=== PATIENT | male | born 1965 | race Caucasian/White ===

== ENCOUNTER 2019-10-04 12:10 | Emergency (ER) | payer SELFPAY | END 2019-10-04 14:24 | disposition home or self-care (01) | LOC: ERS 12:10 | DX: R05 Cough (principal); F17.210 Nicotine dependence, cigarettes, uncomplicated | CPT/HCPCS: 99281 ==

== ENCOUNTER 2019-10-10 11:29 | Inpatient (IN) | payer SELFPAY ==
[2019-10-10] MEDS ORDERED: Diltiazem 125 MG/25 ML ONE ×2 (12:00→12:34)
[2019-10-10 12:10] LABS: #Eosinphils 0.1 thou/uL (0.0-0.7); #Neutrophils 7.5 thou/uL (1.40-6.50); %Basophils 0.4 % (0.0-1.0); %Eosinophils 0.7 % (0.0-10.0); %Lymphocytes 18.6 % (21.0-51.0); %Monocytes 9.4 % (0.0-10.0); %Neutrophils 70.9 % (42.0-75.0); Hemoglobin 13.5 g/dL (14.0-18.0); Mean Corpuscular HGB CONC 32.6 g/dL (32.0-36.0); Mean Corpuscular Hemoglobin 30.3 pg (27.0-31.0); Mean Corpuscular Volume 93.2 fL (78.0-98.0); Mean Platelet Volume 9.7 fL (7.4-10.4); Platelet Count 272 thou/uL (130-400); RBC Distribution Width 13.9 % (11.5-14.5); Red Blood Cell (RBC) Count 4.46 mill/uL (4.70-6.10); White Blood Cell (WBC) Count 10.6 thou/uL (4.8-10.8)
[2019-10-10] MEDS ORDERED: Diltiazem HCl 125 MG, Admixture Fee 1 EACH in Sodium Chloride 0.9% 100 ML IVPB SCH (12:15)
--- NOTE | 2019-10-10 12:22 | RAD ---
Chest one view HISTORY: Chest pain. Atrial flutter. FINDINGS: No comparison. Cardiac silhouette is magnified and enlarged. Pulmonary vasculature is engor ged with bilateral perihilar and bibasilar infiltrates. More prominent airspace opacification with subtle air bronchograms projects over the right posterior lung base. Mediastinum is midline. No evidence of pneumothorax. patient monitor leads overlie the chest. IMPRESSION: Cardiomegaly with pulmonary vascular congestion/borderline edema. Consider CHF. Probable superimposed right lung base infiltrate. Clinical correlation regarding other signs and symp toms of right lower lobe pneumonitis is required. Please consider radiographic follow-up to evaluate for resolution.
[2019-10-10 12:24] LABS: INR-International Normal Ratio 1.1
[2019-10-10 12:25] LABS: D-Dimer Test 2.44 *mcg/mL (0.27-0.43)
[2019-10-10 12:37] LABS: PTT 29.3 SEC (22.9-36.1)
[2019-10-10 12:38] LABS: ALT (SGPT) 39 U/L (8-55); AST (SGOT) 34 U/L (5-34); Albumin 4.3 g/dL (3.5-5.0); Alkaline Phosphatase 145 U/L (40-110); Anion Gap 15 mmol/L (10-20); BUN (Urea Nitrogen) 20 mg/dL (8.4-25.7); Bilirubin, Total 1.3 mg/dL (0.2-1.2); Calc. Creatinine Clearance 0 mL/min (70-130); Calcium 9.4 mg/dL (7.8-10.44); Carbon Dioxide 25 mmol/L (22-29); Chloride 100 mmol/L (98-107); Estimated GFR-MDRD 64; Globulin 3.1 g/dL (2.4-3.5); Glucose 127 mg/dL (70-105); Lipase 20 U/L (8-78); Potassium 4.5 mmol/L (3.5-5.1); Protein, Total 7.4 g/dL (6.0-8.3); Sodium 135 mmol/L (136-145)
[2019-10-10] MEDS ORDERED: Aspirin Chewable 81 MG TAB ONE (12:57)
[2019-10-10 13:01] LABS: CKMB 4.8 ng/mL (0-6.6)
[2019-10-10] MEDS ORDERED: Azithromycin 500 MG VIAL ONE (13:15)
[2019-10-10] MEDS ORDERED: Labetalol HCl 100 MG/20 ML VIAL ONE (13:15)
[2019-10-10] MEDS ORDERED: Enoxaparin Sodium 80 MG/0.8 ML SYRINGE ONE (13:15)
[2019-10-10] MEDS ORDERED: cefTRIAXone\\ROCEPHIN 2 GM VIAL ONE (13:15)
[2019-10-10] MEDS ORDERED: Enoxaparin Sodium 30 MG/0.3 ML SYRINGE ONE (13:15)
[2019-10-10] MEDS ORDERED: Metoprolol Tartrate 5 MG/5 ML VIAL ONE (13:22)
[2019-10-10] MEDS ORDERED: Iopamidol-370 76% 500 ML 1 ML ONE (13:23)
[2019-10-10] MEDS ORDERED: Amiodarone 150 MG, Admixture Fee 1 EACH in Dextrose 5% in Water 100 ML IVPB SCH (14:45)
[2019-10-10] MEDS ORDERED: Amiodarone 450 MG, Admixture Fee 1 EACH in Dextrose 5% in Water 250 ML IVPB SCH (14:45)
--- NOTE | 2019-10-10 15:09 | CT ---
CT PULMONARY ANGIOGRAM WITH IV CONTRAST AND 3-D POSTPROCESSING: HISTORY:Dyspnea FINDINGS: There is good contrast opacification of the pulmonary arterial vasculature without filling defects to suggest pulmonary embolism. The thoracic aorta is not opacified and is without aneurysm . Subcarinal lymph nodes are enlarged sania suring 2 cm. Other mediastinal lymph nodes measure up to 1 cm. No pericardial effusion is seen. There is a tiny left and a small right pleural effusion with adjacen t infiltrates/atelectatic changes. No pneumothoraces are seen. There is a 5 mm nodule in the right upper lobe posteriorly. There are degenerative changes in the spine. IMPRESSION: 1. No CT evidence of pulmonary embolism. 2. Indeterminate right upper lobe 5 mm lung nodule. 3. Bilateral pleural effusions. 4. Mediastinal lymphadenopathy.
[2019-10-10] MEDS ORDERED: Furosemide 40 MG/4 ML VIAL ONE (15:49)
[2019-10-10 16:53] LABS: Critical Call Chem Troponin I RESULT DECREASING; Troponin I 4.884 ng/mL (< 0.028)
--- NOTE | 2019-10-10 18:22 | HP ---
CHIEF COMPLAINT: Cough and atrial flutter. HISTORY OF PRESENT ILLNESS: The patient is a 54-year-old male, who had a 10-day history of a cough, somewhat productive with yellowish, brownish sputum on and off, who went to the primary care physician at [facility] with complaints of a cough, and he had EKG done, which showed he was in a fast heart rate, and he was sent to the emergency room for further evaluation. He was found to be in atrial flutter in the emergency room and was given Cardizem and labetalol, and despite of all those treatments, he did not respond to this management yet. He does not have much more complaints to offer. He denies any fever or chills. No chest pain. No shortness of breath. He does not have any well-established primary care physician. He never went to any heart doctor for any cardiac problems. He denied any peripheral edema. PAST MEDICAL HISTORY: Negative for any problems. PAST SURGICAL HISTORY: There is no past surgical history. MEDICATIONS: None. ALLERGIES: NONE. SOCIAL HISTORY: He smokes 7 to 8 cigarettes per day. He used to smoke 10 to 12 for the last 44 years. FAMILY HISTORY: Mother and father with diabetes, and father is in his 50s, but mother is still alive. REVIEW OF SYSTEMS: All 14 systems were reviewed, and only symptoms which are mentioned in HPI are positive and otherwise they are negative. PHYSICAL EXAMINATION: VITAL SIGNS: Blood pressure is 128/105, pulse is 146, respiratory rate is 22. He is afebrile. HEENT: His head is atraumatic and normocephalic. Eyes are PERRLA. Sclerae are nonicteric. Conjunctivae pinkish. Oral mucosa, his dental hygiene is quite poor. NECK: Supple. LUNGS: Clear. HEART: S1, S2. Tachycardic, regular. No S3. No S4. ABDOMEN: Soft, nontender, obese. EXTREMITIES: No clubbing, cyanosis, or edema. NEUROLOGICAL: He is alert and oriented x4. There are no any motor or sensory deficits present. Cranial nerves are intact. LABORATORY DATA: Labs showed white count of 10.6, hemoglobin 13.5, hematocrit 41.6, and platelet count is 272,000. INR is 1.1, APTT 29.3, PT 14.0. D-dimer is 2.44. Sodium 135, potassium 4.5, chloride 100, CO2 of 25, BUN 20, creatinine 1.18, and glucose 127. Lactic acid 2.0, total bilirubin 1.3, alkaline phosphatase 145. Normal LFTs, except for those which are abnormal. Troponin I 4.901. BNP 1093.1. The rest of chemistry within normal limits. Lipase 20. TSH third generation 1.5072. Electrocardiogram personally reviewed by me showed atrial flutter with ventricular rate of 150 beats per minute, some Q waves present, which is suggestive of previous infarctions. Chest x-ray personally reviewed by me showed cardiomegaly with pulmonary vascular congestion and borderline edema most likely it is CHF, possible infiltrate in the right lower lobe. IMPRESSION: 1. Atrial flutter with ventricular rate of 150 beats per minute, not responding to medical management. The patient received 45 mg total of Cardizem, and he had 2 doses of labetalol 5 mg each. 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 Rico for EP evaluation. He would like to start the patient on amiodarone and full anticoagulation with Lovenox subcutaneously every 12 hours. 2. Cough with right lower lobe infiltrate on chest x-ray to rule out pneumonia. The patient is started on Rocephin and Zithromax. 3. Elevated BNP with some evidence of congestive heart failure on the chest x-ray. 4. Elevated troponin I, 1st set, suggestive of acute myocardial injury. 5. Elevated D-dimers to rule out acute PE. PLAN: Admission to [facility]. Condition is guarded. IV Hep-Lock. Amiodarone 150 mg loading dose, then IV drip. Lovenox 1 mg/kg subcutaneously every 12 hours. Consult for Cardiology and EP, Dr. Rico. Continue Rocephin and azithromycin. DVT prophylaxis with SCDs. Full code. Surrogate decision maker, Gina Brady, personal friend of the patient. Primary care physician at [facility]. We will obtain echocardiogram, and we will continue with 2 sets of troponins to rule out acute MN. I will give him 1 dose of Lasix, and he will be on twice a day dosing IV push 40 mg of Lasix. Job ID: [id number]
[2019-10-10] MEDS ORDERED: Ondansetron PF 4 MG/2 ML Vial IVP PRN (18:37)
[2019-10-10 19:18] LABS: Troponin I 5.126 ng/mL (< 0.028)
--- NOTE | 2019-10-10 19:33 | CON ---
DATE OF CONSULTATION: 10/10/2019 REASON FOR CONSULTATION: [id number] NM and atrial flutter. HISTORY OF PRESENT ILLNESS: Mr. Jc is a pleasant 54-year-old white gentleman, who comes to the hospital for cough. He has been having a cough for the last 2 weeks. He came to the ER 2 weeks ago and he was given some cough syrup and sent home. He states that the cough has been getting worse. He was evaluated and found to have atrial flutter with rapid ventricular response, heart rate in the 150s and he was started on Cardizem drip and given some labetalol. His heart rate went down to the 120s; however, it is still in the 120s to 140s. EP was consulted for this. They recommended starting an amiodarone drip. Cardiology also been consulted because his troponins were positive. His initial troponin came back at 4.9. Talking to Mr. Jc, he denies any chest pain, tightness, or pressure. He is only short of breath and he has been doing with this cough. He is unable to lay flat as he gets really short of breath smothered and he starts coughing a lot more. He has been going on for the last 2 weeks, getting worse every day. He denies any cardiac workup in the past. PAST MEDICAL HISTORY: None. PAST SURGICAL HISTORY: None. OUTPATIENT MEDICATIONS: None. ALLERGIES: NO KNOWN DRUG ALLERGIES. SOCIAL HISTORY: Smokes around half a pack a day for about 44 years. Social alcohol use. No drug use. FAMILY HISTORY: No early coronary artery disease as far as he knows. REVIEW OF SYSTEMS: A 12-point review of systems was done and was all negative unless stated in the history of present illness. PHYSICAL EXAMINATION: VITAL SIGNS: Temperature 98.2, pulse 138, respiratory rate 22, saturating 98% on 2 L nasal cannula, and blood pressure 122/86. GENERAL: Awake, alert, and oriented x3, in no distress. HEENT: Normocephalic and atraumatic. NECK: Supple. LUNGS: Have crackles at the bases. CARDIOVASCULAR: S1 and S2. Irregularly irregular heart rate in the 130s to 150s. Grade 2/6 systolic murmur at the right upper sternal border. ABDOMEN: Soft. Positive bowel sounds. EXTREMITIES: 1+ edema. SKIN: Warm and dry. LABORATORY DATA: Laboratory work was reviewed. CBC with a white count of 10, hemoglobin of 13, hematocrit 41, platelet count of 272. D-dimer was elevated. Chemistries are unremarkable except for a total bilirubin of 1.3, alkaline phosphatase 145. Troponin initially was 4.9, now down to 4.8. CK-MB was 4.8. BNP was 1093. TSH is normal 1.5. Lipase was normal. EKG was reviewed, atrial flutter. CTA of the thorax showed no evidence of pulmonary embolism. There is a right upper lobe 5 mm lung nodule, bilateral pleural effusions, and mediastinal lymphadenopathy. ASSESSMENT: 1. [id number]-LB-[id number] myocardial infarction. 2. Atrial flutter with rapid ventricular response. 3. Acute on chronic systolic versus diastolic heart failure. 4. Tobacco use. 5. Pulmonary nodule. PLAN: 1. IV diuresis. 2. We will agree with full anticoagulation for both stroke prophylaxis and [id number] NM. 3. IV antibiotics per primary team to treat possibly an upper respiratory infection. 4. Continue current dose of furosemide. Plan is to diurese him well enough to do a left heart catheterization. This is probably going to happen Monday. 5. Continue amiodarone drip for now. 6. EP following for the atrial flutter. Depending on situation, may need either a flutter ablation versus just cardioversion. 7. At this point, my suspicion is high on this being a dilated cardiomyopathy. Echocardiogram is pending. Thank you for letting us to participate in the care of your patient. We will follow. Job ID: [id number]
[2019-10-10] MEDS: Enoxaparin Sodium 120 MG/0.8 ML SYRINGE SC SCH (20:33)
[2019-10-10 22:15] LABS: CKMB 3.4 ng/mL (0-6.6)
[2019-10-10 22:18] VITALS: BMI 33.4
[2019-10-10] MEDS ORDERED: Ondansetron PF 4 MG/2 ML Vial SLOW IVP PRN (23:07)
[2019-10-10] MEDS ORDERED: Acetaminophen 325 MG TAB PO PRN (23:07)
--- NOTE | 2019-10-11 01:21 | CON ---
DATE OF CONSULTATION: 10/10/2019 ADDITIONAL REFERRING PHYSICIAN: Jayla HISTORY OF PRESENT ILLNESS: I am seeing Mr. Jc at our [facility] ER as an Electrophysiology platform consultant. His problems are: 1. Newly found atrial flutter with 2:1 AV conduction, likely typical isthmus dependent in morphology. 2. Elevated troponin peaked at 4.9. 3. Elevated sugar levels. 4. Cough, possible bronchitis. ALLERGIES: NONE NOTED. MEDICATIONS AT HOME: None. SUBJECTIVE: Mr. Jc is here with recurrent fatigue and dyspnea. He has had worsening symptoms for the last week, actually was in this hospital ER on the . He was discharged then and at that point no notion of rapid heartbeats were noted. He later went to an acute care center and he was noted to be in rapid rates that appear to be atrial flutter and he was eventually discharged. He actually does not feel palpitations, denies angina-like discomfort. Has some PND and orthopnea. No stroke-like symptoms. No neurological deficits and rest of 12-point system otherwise unremarkable. PAST MEDICAL HISTORY: Negative for prior history of heart disease or heart attack. SOCIAL HISTORY: The patient denies smoking EtOH or drug abuse. FAMILY HISTORY: Not contributory. OBJECTIVE DATA: VITAL SIGNS: Blood pressure is 134/98, heart rate 140, respirations 12, the patient is afebrile. GENERAL: He is an alert and oriented man, in no apparent distress. NECK: Supple. Jugular veins not distended. CHEST: Coarse without crackles. HEART: Sounds are irregularly irregular. S1 and S2 are variable. No murmur or gallop. ABDOMEN: Benign. Bowel sounds positive. EXTREMITIES: Lower extremity without edema, clubbing, or cyanosis. Pulses are adequate. NEUROLOGIC: The patient is nonfocal. MUSCULOSKELETAL: Without joint swelling or deformities. SKIN: Without rash. DATABASE: EKG is reviewed revealing atrial flutter, possible typical isthmus dependent in morphology, 2:1 AV conduction at the rate of 149 beats per minute seen. LABORATORY DATA: Sodium 135, potassium 4.5, BUN is 30, creatinine is 1.18. Troponin I is 4.9 and 4.884 consecutively. The white count is 10.6, hematocrit 13.5, platelet count is 272. The INR is 1.1. D-dimer is 2.44. IMAGING: Chest CT is negative. Chest x-ray shows borderline anemia, possible CHF. The BNP is 1093 elevated. ASSESSMENT AND PLAN: Mr. Jc is a 54-year-old man without prior cardiac history with upper respiratory tract like symptoms for last week or so now. He is also presenting with more increased heart rates, feeling progressively worsened since Monday. On ER evaluation so far, he was noted to have elevated fluid levels and BNP suggestive of congestive heart failure exacerbation, also noted to have markedly elevated troponins and EKG is consistent with 2:1 conducted typical isthmus dependent atrial flutter. PLAN: 1. Recurrent atrial flutter. At this point, I agree with the initiated rate-controlling efforts. He was already started on IV diltiazem, but so far no sufficient rate control is achieved. Hence, he was switched over to IV amiodarone, which will be continued at this time. He will be initiated on anticoagulation with IV Lovenox. 2. CHF, likely benefit from diuresis and also expecting to improve with heart rate control. 2D echo to assess LV systolic function is advised. 3. Elevated troponin, possibly demand ischemia. Dr. Dickerson on board for consideration of ischemic evaluation. 4. We discussed the future treatment options of atrial flutter, which could include cardioversion versus ablation procedures. He understands and will follow up with you. Thank for the consult. Job ID: [id number] [facility]
[2019-10-11 03:53] LABS: #Lymphocytes 1.7 thou/uL (1.20-3.40); #Monocytes 1.6 thou/uL (0.11-0.59); #Neutrophils 8.5 thou/uL (1.40-6.50); %Basophils 0.1 % (0.0-1.0); %Eosinophils 0.2 % (0.0-10.0); %Lymphocytes 14.7 % (21.0-51.0); %Monocytes 13.6 % (0.0-10.0); %Neutrophils 71.4 % (42.0-75.0); Hemoglobin 13.5 g/dL (14.0-18.0); Mean Corpuscular HGB CONC 32.4 g/dL (32.0-36.0); Mean Corpuscular Hemoglobin 30.3 pg (27.0-31.0); Mean Corpuscular Volume 93.5 fL (78.0-98.0); Mean Platelet Volume 9.9 fL (7.4-10.4); Platelet Count 257 thou/uL (130-400); RBC Distribution Width 13.9 % (11.5-14.5); Red Blood Cell (RBC) Count 4.46 mill/uL (4.70-6.10); White Blood Cell (WBC) Count 11.9 thou/uL (4.8-10.8)
[2019-10-11 04:23] LABS: Anion Gap 17 mmol/L (10-20); BUN (Urea Nitrogen) 28 mg/dL (8.4-25.7); Calc. Creatinine Clearance 75 mL/min (70-130); Carbon Dioxide 20 mmol/L (22-29); Chloride 103 mmol/L (98-107); Estimated GFR-MDRD 42; Glucose 115 mg/dL (70-105); Potassium 4.7 mmol/L (3.5-5.1); Sodium 135 mmol/L (136-145)
[2019-10-11] MEDS ORDERED: Furosemide 40 MG/4 ML VIAL SLOW IVP SCH (06:00)
[2019-10-11] MEDS: Enoxaparin Sodium 120 MG/0.8 ML SYRINGE SC SCH ×2 (08:18→21:08)
--- NOTE | 2019-10-11 10:13 | CON ---
DATE OF CONSULTATION: HISTORY OF PRESENT ILLNESS: This is a 54-year-old gentleman, who was sent back to the hospital after his primary care physician noticed that his heart rate was elevated, flutter. In fact, he was in the ER not long ago, discharged home to be followed up with his primary care physician for a cough without any associated fevers, chills, sweats, or hemoptysis. Smoking a pack a day since he was a kid. No previous history of TB or bronchial asthma. 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 No other issues. Takes no medication. PAST SURGERIES: None. MEDICATION: Chronic medication, none. PAST MEDICAL HISTORY: No history of diabetes or hypertension until recently a diagnosis of cardiac arrhythmias. He is now started on amiodarone, Zithromax, ceftriaxone, Lasix. REVIEW OF SYSTEMS: Otherwise, unremarkable. PHYSICAL EXAMINATION: VITAL SIGNS: Temperature 97, sats are 98% on 2 L, blood pressure 138/92, respiratory rate 18, pulse 80. CHEST: No wheezing. No crackles. CARDIAC: Normal S1, S2. No gallops. ABDOMEN: No masses. LABORATORY DATA: White count 11,000, H and H are 13 and 41, platelet count 257. Creatinine 1.68. Troponin is elevated. BNP is 1000. DIAGNOSTIC DATA: X-ray shows cardiomegaly and right-sided infiltrate. CT of chest was performed, which shows right-sided pleural effusion and a smaller effusion on the left side with infiltrate. IMPRESSION: 1. Supraventricular tachycardia. 2. Cardiomegaly. 3. Right pleural effusion. 4. Right lower lobe infiltrate. 5. Elevated troponin. 6. Qja-DS-htmblka elevation. 7. Myocardial infarction. 8. Flutter. PLAN: I agree with present antibiotic coverage. Pulmonary will follow. Await sputum cultures, serial exam. Cardiology following. Consultation note, 70 minutes, 50% direct patient care. Job ID: [id number]
--- NOTE | 2019-10-11 12:50 | PDOC.CPN ---
- Subjective Date: 10/11/19 Time: 12:49 Interval history: EP PROGRESS NOTE: 10/11/19 Follow up for atrial flutter. Remains on amiodarone gtt. pt is quite overwhelmed and anxious with all these new medical issues. reports a headache. - Review of Systems General: denies: fever/chills, weight/appetite/sleep changes, night sweats, fatigue Respiratory: denies: cough, congestion, shortness of breath, exercise intolerance Cardiovascular: denies: chest pain, palpitation, edema, paroxysmal nocturnal dyspnea, orthopnea Gastrointestinal: denies: nausea, vomiting, diarrhea, constipation, abd pain, GI bleeding Neurological: denies: numbness, syncope, seizure, weakness - Objective Allergies/Adverse Reactions: Allergies Allergy/AdvReac Type Severity Reaction Status Date / Time No Known Allergies Allergy Verified 10/11/19 00:32 Visit Medications: Current Medications Acetaminophen (Tylenol) 650 mg PO Q6H PRN PRN Reason: Mild Pain (1-3)/FEVER Enoxaparin Sodium (Lovenox) 110 mg SC 0900,2100 CYN Last Admin: 10/11/19 08:18 Dose: 110 mg Furosemide (Lasix) 40 mg SLOW IVP DAILY CYN Amiodarone HCl 450 mg/Miscellaneous Medication 1 each/ Dextrose/Water 259 mls @ 0 mls/hr IVPB INF CYN; Protocol Last Admin: 10/11/19 02:59 Dose: 259 mls Ceftriaxone Sodium 1 gm/ (Sodium Chloride) 100 mls @ 200 mls/hr IVPB 1300 CYN Azithromycin 500 mg/ Sodium (Chloride) 250 mls @ 250 mls/hr IVPB 1400 CYN Influenza Virus Vaccine Quadrival (Fluzone Quad Syringe) 60 mcg IM .ONCE ONE Stop: 10/11/19 21:01 Ondansetron HCl (Zofran) 4 mg IVP Q6H PRN PRN Reason: Nausea/Vomiting Ondansetron HCl (Zofran) 4 mg SLOW IVP Q6H PRN PRN Reason: Nausea/Vomiting Pneumococcal Polyvalent Vaccine (Pneumovax 23) 0.5 ml IM .ONCE ONE Stop: 10/11/19 21:01 Vital Signs & Weight: Vital Signs Temp Pulse Ox 10/11/19 11:17 97.3 F L 10/11/19 07:45 98 10/11/19 07:10 97.1 F L 10/11/19 03:38 97.7 F Weight 239 lb 9.574 oz - Physical Exam General: alert & oriented x3, appears well, no apparent distress HEENT: mucus membranes moist, normocephaly Neck: supple neck, midline trachea, no JVD/HJR, no masses, no bruit, no lymphadenopathy, no thromegaly Cardiac: no murmur, regular rate Lungs: clear to auscultation, normal breath sounds, normal exam, no wheeze, rales, rhonchi Neuro: cranial nerve 2-12 intact, grossly intact, motor function intact, sensory function intact, negative rhomberg, coordination normal, no lateralizing findings Abdomen: unremarkable, active bowel sounds, soft, non-tender, no masses, no pulsations/bruits, no hepatosplenomegaly Extremities: no cyanosis - Labs Result Diagrams: 10/11/19 03:32 10/11/19 11:32 Troponin/CKMB CK-MB (CK-2) 3.4 ng/mL (0-6.6) 10/10/19 21:15 Troponin I 5.968 ng/mL (< 0.028) H* 10/10/19 21:15 - Telemetry Supraventricular conduction: atrial flutter - Assessment/Plan Assessment/Plan: 1. Atrial flutter, typical - CTI dependent. Will plan for possible ablation Monday if schedule permits. Otherwise will schedule as OP. - full anticoagulation is indicated. On lovenox. 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 Systolic heart failure - Echo revealed severely reduced EF of ~25%. - Likely tachycardia mediated. - LHC planned for Monday Patient ate today and could not be taken down for ablation. He is now added to schedule for possible ablation Monday afternoon. He is having LHC that morning. If unable to fit ablation in Monday we will likely need to bring him back as OP. Pt is aware of this plan.
[2019-10-11] MEDS: cefTRIAXone\\ROCEPHIN 1 GM in Sodium Chloride 0.9% 100 ML IVPB SCH (13:14)
[2019-10-11] MEDS: Azithromycin 500 MG in Sodium Chloride 0.9% 250 ML 250 ML IVPB SCH (13:14)
[2019-10-11] MEDS: Acetaminophen 325 MG TAB PO PRN (14:51)
[2019-10-11 14:56] LABS: Anion Gap 14 mmol/L (10-20); BUN (Urea Nitrogen) 30 mg/dL (8.4-25.7); Calc. Creatinine Clearance 78 mL/min (70-130); Carbon Dioxide 23 mmol/L (22-29); Chloride 101 mmol/L (98-107); Estimated GFR-MDRD 44; Glucose 110 mg/dL (70-105); Potassium 4.4 mmol/L (3.5-5.1); Sodium 134 mmol/L (136-145)
--- NOTE | 2019-10-11 15:09 | PDOC.CPN ---
- Subjective Date: 10/11/19 Time: 15:06 Interval history: He is feeling better. Still cant lay still. - Review of Systems General: denies: fever/chills, weight/appetite/sleep changes, night sweats, fatigue Respiratory: reports: cough, shortness of breath. denies: congestion, exercise intolerance Cardiovascular: reports: edema. denies: chest pain, palpitation, paroxysmal nocturnal dyspnea, orthopnea Gastrointestinal: denies: nausea, vomiting, diarrhea, constipation, abd pain, GI bleeding Musculoskeletal: denies: pain, tenderness, stiffness, swelling, arthritis/ arthralgias Neurological: denies: numbness, syncope, seizure, weakness - Objective Allergies/Adverse Reactions: Allergies Allergy/AdvReac Type Severity Reaction Status Date / Time No Known Allergies Allergy Verified 10/11/19 00:32 Visit Medications: Current Medications Acetaminophen (Tylenol) 650 mg PO Q4H PRN PRN Reason: Headache/Fever or Mild Pain Last Admin: 10/11/19 14:51 Dose: 650 mg Enoxaparin Sodium (Lovenox) 110 mg SC 0900,2100 [facility] Last Admin: 10/11/19 08:18 Dose: 110 mg Furosemide (Lasix) 40 mg SLOW IVP DAILY [facility] Amiodarone HCl 450 mg/Miscellaneous Medication 1 each/ Dextrose/Water 259 mls @ 0 mls/hr IVPB INF CYN; Protocol Last Admin: 10/11/19 02:59 Dose: 259 mls Ceftriaxone Sodium 1 gm/ (Sodium Chloride) 100 mls @ 200 mls/hr IVPB 1300 CYN Last Admin: 10/11/19 13:14 Dose: 100 mls Azithromycin 500 mg/ Sodium (Chloride) 250 mls @ 250 mls/hr IVPB 1400 CYN Last Admin: 10/11/19 13:14 Dose: 250 mls Influenza Virus Vaccine Quadrival (Fluzone Quad [id number] Syringe) 60 mcg IM .ONCE ONE Stop: 10/11/19 21:01 Ondansetron HCl (Zofran) 4 mg IVP Q6H PRN PRN Reason: Nausea/Vomiting Ondansetron HCl (Zofran) 4 mg SLOW IVP Q6H PRN PRN Reason: Nausea/Vomiting Pneumococcal Polyvalent Vaccine (Pneumovax 23) 0.5 ml IM .ONCE ONE Stop: 10/11/19 21:01 Vital Signs & Weight: Vital Signs Temp Pulse Ox 10/11/19 11:17 97.3 F L 10/11/19 07:45 98 10/11/19 07:10 97.1 F L 10/11/19 03:38 97.7 F Weight 239 lb 9.574 oz - Physical Exam General: alert & oriented x3 HEENT: mucus membranes moist Neck: supple neck Cardiac: regular rate and rhythm Lungs: bibasilar rales Neuro: grossly intact Abdomen: active bowel sounds, soft, non-tender Extremities: 1+ LE edema Skin: clear Musculoskeletal: no pain - Labs Result Diagrams: 10/11/19 03:32 10/11/19 11:32 Troponin/CKMB CK-MB (CK-2) 3.4 ng/mL (0-6.6) 10/10/19 21:15 Troponin I 5.968 ng/mL (< 0.028) H* 10/10/19 21:15 - Telemetry Sinus rhythms and dysrhythmias: sinus rhythm - Assessment/Plan Assessment/Plan: 1. Acute on chronic systolic heart failure 2. New onset dilated CM 3. Atrial flutter 4. Tobacco use 5. HTN PLAN: - Back in sinus on amiodarone. - Still unable to lay flat, continue IV lasix. - Will plan on diuresis over the weekend and [facility] on monday. - I spend 30 minutes bedside explaining his current condition. - EP following for aflutter.
[2019-10-11] MEDS: Amiodarone 200 MG TAB PO SCH (18:29)
[2019-10-11] MEDS ORDERED: FLU VACC QS2019-20(6MOS UP)/PF 60 MCG/0.5 ML SYRINGE IM ONE (21:00)
--- NOTE | 2019-10-11 21:25 | PDOC.HOSPP ---
- Subjective Encounter Date: 10/11/19 Encounter Time: 14:30 Subjective: Patient seen and examined for Flutter/CHF. SOB improving. No CP. SOB on exertion +. Cough improving.. No new complaints. No overnight events - Objective Vital Signs & Weight: Vital Signs (12 hours) Temp Pulse Ox 10/11/19 19:30 97 10/11/19 19:00 97.0 F L 10/11/19 15:22 97.2 F L 10/11/19 11:17 97.3 F L Weight Weight 239 lb 9.574 oz Most Recent Monitor Data Heart Rate from ECG 88 NIBP 138/113 NIBP BP-Mean 121 Respiration from ECG 20 SpO2 95 I&O: 10/10/19 10/11/19 10/12/19 06:59 06:59 06:59 Intake Total 800.4 Output Total 300 300 Balance 500.4 -300 Result Diagrams: 10/11/19 03:32 10/11/19 11:32 Radiology Reviewed by me: Yes (CTA - no PE) EKG Reviewed by me: Yes (Tele SR) Hospitalist ROS - Review of Systems Cardiovascular: reports: orthopnea. denies: chest pain, palpitations, paroxysmal noc. dyspnea, edema, light headedness, other Gastrointestinal: denies: nausea, vomiting, abdominal pain, diarrhea, constipation, melena, hematochezia, other - Medication Medications: Active Medications Generic Name Dose Route Start Last Admin Trade Name Freq PRN Reason Stop Dose Admin Acetaminophen 650 mg 10/11/19 14:23 10/11/19 14:51 Tylenol PO 650 mg Q4H PRN Administration Headache/Fever or Mild Pain Amiodarone HCl 400 mg 10/11/19 21:00 10/11/19 18:29 Cordarone PO 400 mg BID CYN Administration Enoxaparin Sodium 110 mg 10/10/19 21:00 10/11/19 21:08 Lovenox SC 110 mg 0900,2100 CYN Administration Ceftriaxone Sodium 1 gm/ 100 mls @ 200 mls/hr 10/11/19 13:00 10/11/19 13:14 Sodium Chloride IVPB 100 mls 1300 CYN Administration Azithromycin 500 mg/ Sodium 250 mls @ 250 mls/hr 10/11/19 14:00 10/11/19 13: 14 Chloride IVPB 250 mls 1400 CYN Administration - Exam General Appearance: NAD Heart: RRR, no gallops, no rubs, normal peripheral pulses Respiratory: no wheezes, normal chest expansion, rales, rhonchi Gastrointestinal: soft, non-tender, non-distended, normal bowel sounds Extremities: no cyanosis, no clubbing, 1+ LE edema Neurological: no new deficit Psychiatric: normal affect, A&O x 3 Hosp A/P - Plan DVT proph w/lovenox NSTEMI (POA) A flutter with RVR (POA) Acute systolic HF exacerbation CAP ?Pneumococcal (POA) YURIY on CKD 2 - prob due to Cardiorenal syndrome/diuretics Tob dep CKD 2 RUL Lung nodule - 5mm (POA) Hyperglycemia - r/o DM2 Hyponatremia Obesity BMI 33.4 PLAN: Reduce Lasix to 40 mg daily due to YURIY Add 1500 ml fluid restriction Cont 1mg/kg Lovenox - Patient understands the risk associated with anticoag Add ASA/Statins AM labs Check A1c Counselled to quit tob Cont Atbx for Pneumonia Add Mucinex Cath on Monday EP/Cardio following Laboratory Tests 10/10/19 10/10/19 11:50 15:55 Troponin I 4.884 H* B-Natriuretic Peptide 1093.1 H
[2019-10-12 03:30] LABS: #Basophils 0.1 thou/uL (0.0-0.2); #Eosinphils 0.1 thou/uL (0.0-0.7); #Lymphocytes 2.9 thou/uL (1.20-3.40); #Monocytes 1.4 thou/uL (0.11-0.59); #Neutrophils 6.5 thou/uL (1.40-6.50); %Basophils 0.7 % (0.0-1.0); %Eosinophils 1.2 % (0.0-10.0); %Lymphocytes 26.7 % (21.0-51.0); %Monocytes 12.4 % (0.0-10.0); Hemoglobin 13.4 g/dL (14.0-18.0); Mean Corpuscular HGB CONC 32.2 g/dL (32.0-36.0); Mean Corpuscular Hemoglobin 29.8 pg (27.0-31.0); Mean Corpuscular Volume 92.5 fL (78.0-98.0); Mean Platelet Volume 9.6 fL (7.4-10.4); Platelet Count 258 thou/uL (130-400); RBC Distribution Width 13.9 % (11.5-14.5); Red Blood Cell (RBC) Count 4.48 mill/uL (4.70-6.10); White Blood Cell (WBC) Count 10.9 thou/uL (4.8-10.8)
[2019-10-12 03:43] LABS: Hemoglobin A1c 5.7 % (4.0-6.0)
[2019-10-12 03:53] LABS: ALT (SGPT) 953 U/L (8-55); AST (SGOT) 845 U/L (5-34); Albumin 3.9 g/dL (3.5-5.0); Alkaline Phosphatase 150 U/L (40-110); Anion Gap 13 mmol/L (10-20); BUN (Urea Nitrogen) 35 mg/dL (8.4-25.7); Bilirubin, Total 0.9 mg/dL (0.2-1.2); Calc. Creatinine Clearance 78 mL/min (70-130); Calcium 8.6 mg/dL (7.8-10.44); Carbon Dioxide 21 mmol/L (22-29); Cardiac Risk 7.5 (Less than 4.5); Chloride 101 mmol/L (98-107); Cholesterol 128 mg/dl (< 200 Desired); Estimated GFR-MDRD 44; Globulin 2.9 g/dL (2.4-3.5); Glucose 141 mg/dL (70-105); HDL Cholesterol 17 mg/dL (>60 Neg Risk); LDL Cholesterol, Calculated 91 mg/dL; Magnesium 2.3 mg/dL (1.6-2.6); Potassium 4.3 mmol/L (3.5-5.1); Protein, Total 6.8 g/dL (6.0-8.3); Sodium 131 mmol/L (136-145); Triglycerides 99 mg/dL (Less than 150)
[2019-10-12] MEDS: Acetaminophen 325 MG TAB PO PRN (04:20)
[2019-10-12] MEDS: Enoxaparin Sodium 120 MG/0.8 ML SYRINGE SC SCH ×2 (07:30→20:48)
[2019-10-12] MEDS: Amiodarone 200 MG TAB PO SCH (07:30)
[2019-10-12] MEDS: Furosemide 40 MG/4 ML VIAL SLOW IVP SCH (07:30)
[2019-10-12] MEDS: Aspirin 325 mg Enteric Coated Tablet PO SCH (07:30)
[2019-10-12] MEDS: guaiFENesin ER 600 MG TAB PO SCH ×2 (07:30→20:48)
--- NOTE | 2019-10-12 11:15 | PRG ---
DATE OF SERVICE: 10/12/2019 SUBJECTIVE: Sterling Jc this morning, still congested, still short of breath. They planned to do a cardiac cath for EP ablation. OBJECTIVE: VITAL SIGNS: Temperature 97, saturations 95% on room air, blood pressure 133/105, and respirations 18. CHEST: Bilateral wheezing. CARDIAC: Normal S1 and S2. No gallops. ABDOMEN: No mass. LABORATORY DATA: Creatinine 1.62. AST is 845. Echocardiogram shows EF is only 25%. ASSESSMENT: Congestive heart failure, tobacco abuse, chronic obstructive pulmonary disease, coronary artery disease, flutter, renal failure. PLAN: Continue present treatment, supportive care, PT. Pulmonary will follow. Job ID: [id number]
[2019-10-12] MEDS: cefTRIAXone\\ROCEPHIN 1 GM in Sodium Chloride 0.9% 100 ML IVPB SCH (12:47)
[2019-10-12] MEDS: Azithromycin 500 MG in Sodium Chloride 0.9% 250 ML 250 ML IVPB SCH (12:47)
--- NOTE | 2019-10-12 16:39 | PDOC.HOSPP ---
- Subjective Encounter Date: 10/12/19 Encounter Time: 12:20 Subjective: Pt seen for followup re: NSTEMI. Feels better today. - Objective Vital Signs & Weight: Vital Signs (12 hours) Temp Pulse Ox 10/12/19 15:43 97.8 F 10/12/19 11:06 97.0 F L 10/12/19 07:50 95 10/12/19 07:22 97.2 F L Weight Weight 239 lb 9.574 oz Most Recent Monitor Data Heart Rate from ECG 80 NIBP 133/105 NIBP BP-Mean 114 Respiration from ECG 16 SpO2 95 I&O: 10/11/19 10/12/19 10/13/19 06:59 06:59 06:59 Intake Total 800.4 530 Output Total 300 300 Balance 500.4 230 Result Diagrams: 10/12/19 03:22 10/12/19 03:22 Additional Labs: Labs and MARs reviewed by me Hospitalist ROS - Review of Systems Cardiovascular: reports: orthopnea. denies: chest pain, palpitations, paroxysmal noc. dyspnea, edema, light headedness Gastrointestinal: denies: nausea, vomiting, abdominal pain, diarrhea, constipation, melena, hematochezia - Medication Medications: Active Medications Generic Name Dose Route Start Last Admin Trade Name Freq PRN Reason Stop Dose Admin Acetaminophen 650 mg 10/11/19 14:23 10/12/19 04:20 Tylenol PO 650 mg Q4H PRN Administration Headache/Fever or Mild Pain Aspirin 325 mg 10/12/19 09:00 10/12/19 07:30 Ecotrin PO 325 mg DAILY CYN Administration Enoxaparin Sodium 110 mg 10/10/19 21:00 10/12/19 07:30 Lovenox SC 110 mg 0900,2100 CYN Administration Furosemide 40 mg 10/12/19 09:00 10/12/19 07:30 Lasix SLOW IVP 40 mg DAILY CYN Administration Guaifenesin 600 mg 10/12/19 09:00 10/12/19 07:30 Mucinex PO 600 mg Q12HR CYN Administration Ceftriaxone Sodium 1 gm/ 100 mls @ 200 mls/hr 10/11/19 13:00 10/12/19 12:47 Sodium Chloride IVPB 100 mls 1300 CYN Administration Azithromycin 500 mg/ Sodium 250 mls @ 250 mls/hr 10/11/19 14:00 10/12/19 12: 47 Chloride IVPB 250 mls 1400 CYN Administration - Exam General - other findings: Obese Eye: anicteric sclera ENT: moist mucosa Neck: supple Heart: RRR Respiratory - other findings: Carlos crackles Gastrointestinal: soft, non-tender Extremities: 1+ LE edema Psychiatric: normal affect, normal behavior Hosp A/P - Plan NSTEMI (POA) A flutter with RVR (POA) Acute systolic HF exacerbation CAP ?Pneumococcal (POA) YURIY on CKD 2 - prob due to Cardiorenal syndrome/diuretics Tob dep CKD 2 RUL Lung nodule - 5mm (POA) Hyperglycemia - r/o DM2 Hyponatremia Obesity BMI 33.4 PLAN: Creatinine stabilized at 1.62. Continue furosemide 40 mg daily. Add 1500 ml fluid restriction Cont therapeutic Lovenox Continue aspirin and statin. Cont Atbx for Pneumonia Cath on Monday EP/Cardio following
[2019-10-12] MEDS: Mometasone/Formoterol 120 PUFF INHALER INH SCH (18:12)
[2019-10-12] MEDS ORDERED: Atorvastatin Calcium 40 MG TAB PO SCH (21:00)
[2019-10-13 04:00] LABS: ALT (SGPT) 702 U/L (8-55); AST (SGOT) 291 U/L (5-34); Albumin 3.7 g/dL (3.5-5.0); Alkaline Phosphatase 156 U/L (40-110); Bilirubin, Direct 0.6 mg/dL (0.1-0.3); Bilirubin, Total 0.9 mg/dL (0.2-1.2); Protein, Total 6.4 g/dL (6.0-8.3)
[2019-10-13] MEDS: Mometasone/Formoterol 120 PUFF INHALER INH SCH ×2 (07:01→18:44)
[2019-10-13] MEDS: Aspirin 325 mg Enteric Coated Tablet PO SCH (08:07)
[2019-10-13] MEDS: Furosemide 40 MG/4 ML VIAL SLOW IVP SCH (08:07)
[2019-10-13] MEDS: Enoxaparin Sodium 120 MG/0.8 ML SYRINGE SC SCH ×2 (08:08→20:25)
[2019-10-13] MEDS: guaiFENesin ER 600 MG TAB PO SCH ×2 (08:08→20:25)
--- NOTE | 2019-10-13 11:54 | PRG ---
DATE OF SERVICE: 10/13/2019 SUBJECTIVE: Sterling Jc this morning is better. Liver functions are trended down. AST is 291. Less cough, less shortness of breath. OBJECTIVE: VITAL SIGNS: Temperature 97, pulse 92, respirations 19, O2 saturation 95%, blood pressure 120/80. CHEST: Minimal wheezing, rhonchi. CARDIAC: Normal S1, S2. No gallops. ABDOMEN: Soft. IMPRESSION: 1. Atrial fib/flutter. 2. Congestive heart failure. 3. Tobacco abuse. 4. Chronic obstructive pulmonary disease. 5. Azotemia. PLAN: Work up in progress. Continue Rui, supportive care, PT. Job ID: [id number]
[2019-10-13] MEDS: cefTRIAXone\\ROCEPHIN 1 GM in Sodium Chloride 0.9% 100 ML IVPB SCH (14:22)
[2019-10-13] MEDS: Azithromycin 500 MG in Sodium Chloride 0.9% 250 ML 250 ML IVPB SCH (14:48)
--- NOTE | 2019-10-13 16:10 | PDOC.HOSPP ---
- Subjective Encounter Date: 10/13/19 Encounter Time: 11:00 Subjective: Pt seen for followup re: NSTEMI. Dis not sleep well last night, sleepy now. - Objective Vital Signs & Weight: Vital Signs (12 hours) Temp 10/13/19 15:48 97.4 F L 10/13/19 10:27 97.7 F 10/13/19 07:07 97.0 F L Weight Weight 239 lb 9.574 oz Most Recent Monitor Data Heart Rate from ECG 85 NIBP 134/96 NIBP BP-Mean 108 Respiration from ECG 15 SpO2 95 I&O: 10/12/19 10/13/19 10/14/19 06:59 06:59 06:59 Intake Total 530 787 Output Total 300 950 Balance 230 -163 Result Diagrams: 10/12/19 03:22 10/12/19 03:22 Additional Labs: Labs and MARs reviewed by mo Hospitalist ROS - Review of Systems Respiratory: denies: cough, shortness of breath, SOB with excertion, pleuritic pain, wheezing, other Cardiovascular: denies: chest pain, palpitations, orthopnea, paroxysmal noc. dyspnea, edema, light headedness - Medication Medications: Active Medications Generic Name Dose Route Start Last Admin Trade Name Freq PRN Reason Stop Dose Admin Acetaminophen 650 mg 10/11/19 14:23 10/12/19 04:20 Tylenol PO 650 mg Q4H PRN Administration Headache/Fever or Mild Pain Aspirin 325 mg 10/12/19 09:00 10/13/19 08:07 Ecotrin PO 325 mg DAILY CYN Administration Enoxaparin Sodium 110 mg 10/10/19 21:00 10/13/19 08:08 Lovenox SC 110 mg 0900,2100 CYN Administration Furosemide 40 mg 10/12/19 09:00 10/13/19 08:07 Lasix SLOW IVP 40 mg DAILY CYN Administration Guaifenesin 600 mg 10/12/19 09:00 10/13/19 08:08 Mucinex PO 600 mg Q12HR CYN Administration Ceftriaxone Sodium 1 gm/ 100 mls @ 200 mls/hr 10/11/19 13:00 10/13/19 14:22 Sodium Chloride IVPB 100 mls 1300 CYN Administration Azithromycin 500 mg/ Sodium 250 mls @ 250 mls/hr 10/11/19 14:00 10/13/19 14: 48 Chloride IVPB 250 mls 1400 CYN Administration Mometasone Furoate/Formoterol Fumar 2 puff 10/12/19 18:30 10/13/19 07:01 Dulera 200 Mcg/5 Mcg Inhaler INH 2 puff BID-RT CYN Administration - Exam General - other findings: Obese Eye: anicteric sclera ENT: moist mucosa Neck: supple, symmetric Heart: RRR Respiratory: CTAB Gastrointestinal: soft, non-tender Musculoskeletal: normal tone, normal strength Psychiatric: normal affect, normal behavior Hosp A/P - Plan ASSESSMENT: NSTEMI (POA) A flutter with RVR (POA) Acute systolic HF exacerbation CAP ?Pneumococcal (POA) YURIY on CKD 2 - prob due to Cardiorenal syndrome/diuretics Tob dep CKD 2 RUL Lung nodule - 5mm (POA) Hyperglycemia - r/o DM2 Hyponatremia Obesity BMI 33.4 PLAN: Check AM labs. Continue furosemide 40 mg daily. Continue 1500 ml fluid restriction Continue therapeutic Lovenox Continue aspirin and statin. Cont Atbx for Pneumonia Cath tomorrow.
[2019-10-13] MEDS: Carvedilol 3.125 MG TAB PO SCH (17:34)
[2019-10-13] MEDS: Acetaminophen 325 MG TAB PO PRN (20:29)
[2019-10-14 04:16] LABS: Anion Gap 12 mmol/L (10-20); BUN (Urea Nitrogen) 27 mg/dL (8.4-25.7); Calc. Creatinine Clearance 132 mL/min (70-130); Calcium 8.6 mg/dL (7.8-10.44); Carbon Dioxide 25 mmol/L (22-29); Chloride 105 mmol/L (98-107); Estimated GFR-MDRD 81; Glucose 98 mg/dL (70-105); Potassium 4.1 mmol/L (3.5-5.1); Sodium 138 mmol/L (136-145)
[2019-10-14 04:44] LABS: Band 1 % (5-11); Hemoglobin 12.3 g/dL (14.0-18.0); Hypochromia SLIGHT = 6-15 cells (100X) (0-5/hpf); Lymphocytes 13 % (21-51); MDiff Complete? YES; Mean Corpuscular HGB CONC 31.9 g/dL (32.0-36.0); Mean Corpuscular Volume 93.9 fL (78.0-98.0); Mean Platelet Volume 10.1 fL (7.4-10.4); Monocytes 9 % (0-10); Neutrophil 77 % (42-75); Platelet Count 211 thou/uL (130-400); Platelet Morphology Comment Appears Adequate; RBC Distribution Width 13.8 % (11.5-14.5); Red Blood Cell (RBC) Count 4.09 mill/uL (4.70-6.10); White Blood Cell (WBC) Count 8.5 thou/uL (4.8-10.8)
[2019-10-14] MEDS: Carvedilol 3.125 MG TAB PO SCH ×2 (05:30→17:20)
[2019-10-14] MEDS: Mometasone/Formoterol 120 PUFF INHALER INH SCH ×2 (07:34→19:05)
--- NOTE | 2019-10-14 08:53 | PRG ---
DATE OF SERVICE: 10/14/2019 SUBJECTIVE: This morning, he is better. He is less short of breath, less cough. He is scheduled for LIZ today. OBJECTIVE: VITAL SIGNS: Temperature 98, blood pressure 153/100, and respirations 18. CHEST: No wheezing or crackles. CARDIAC: Normal S1 and S2. No gallops. ABDOMEN: No mass. ASSESSMENT: Supraventricular tachycardia, coronary artery disease, possibly pneumonia, congestive heart failure, and tobacco abuse. PLAN: Deescalate antibiotics. Switch him to oral medication, post LIZ. Baseline chest x-ray. Job ID: [id number]
[2019-10-14] MEDS ORDERED: Iopamidol 370 76% 100 ML VIAL ONE (09:04)
[2019-10-14] MEDS ORDERED: Iopamidol 370 76% 50 ML VIAL FS ONE (09:04)
--- NOTE | 2019-10-14 09:21 | RAD ---
XR Chest 1 View Portable HISTORY: Pneumonia COMPARISON: 10/10/2019 FINDINGS: The heart is enlarged. Infiltrates in the right lower lung demonstrate interval improvement . No pneumothoraces or large effusions are identified. IMPRESSION: Interval improvement since 10/10/2019.
[2019-10-14] MEDS ORDERED: Heparin (Artline) 1,000 ML ONE (10:59)
[2019-10-14] MEDS: Enoxaparin Sodium 120 MG/0.8 ML SYRINGE SC SCH ×2 (11:25→21:31)
[2019-10-14] MEDS: Furosemide 40 MG/4 ML VIAL SLOW IVP SCH (11:25)
[2019-10-14] MEDS: guaiFENesin ER 600 MG TAB PO SCH ×2 (11:25→21:31)
[2019-10-14] MEDS: Aspirin 325 mg Enteric Coated Tablet PO SCH (11:25)
[2019-10-14] MEDS ORDERED: Heparin 10,000 UNITS/1 ML VIAL ONE (11:29)
[2019-10-14] MEDS ORDERED: Verapamil 5 MG/2 ML VIAL ONE (11:29)
[2019-10-14] MEDS ORDERED: Nitroglycerin 100MG/250ML BOT 250 ML ONE (11:29)
[2019-10-14] MEDS ORDERED: Midazolam HCl 2 mg/2 ml Vial ONE (11:33)
[2019-10-14] MEDS ORDERED: Fentanyl 100 MCG/2 ML VIAL ONE (11:33)
[2019-10-14] MEDS ORDERED: TICAGRELOR 90 MG TABLET ONE (12:06)
[2019-10-14] MEDS ORDERED: Nitroglycerin 0.4 MG TAB (25 Tab Bottle) SL PRN (12:21)
[2019-10-14] MEDS ORDERED: Morphine 2 MG/ML SYRINGE SLOW IVP PRN (12:21)
[2019-10-14] MEDS ORDERED: Sodium Chloride 0.9% 250 ML IV SCH (12:30)
--- NOTE | 2019-10-14 13:27 | PDOC.CPN ---
- Subjective Date: 10/14/19 Time: 13:25 Interval history: EP PROGRESS NOTE: 10/14/19 Follow up for atrial flutter. Converted to SR over weekend on amiodarone gtt. S/ P Lcx stenting today. Overall felling better. - Review of Systems General: denies: fever/chills, weight/appetite/sleep changes, night sweats, fatigue Respiratory: denies: cough, congestion, shortness of breath, exercise intolerance Cardiovascular: denies: chest pain, palpitation, edema, paroxysmal nocturnal dyspnea, orthopnea Neurological: denies: numbness, syncope, seizure, weakness - Objective Allergies/Adverse Reactions: Allergies Allergy/AdvReac Type Severity Reaction Status Date / Time No Known Allergies Allergy Verified 10/11/19 00:32 Visit Medications: Current Medications Acetaminophen (Tylenol) 650 mg PO Q4H PRN PRN Reason: Headache/Fever or Mild Pain Last Admin: 10/13/19 20:29 Dose: 650 mg Carvedilol (Coreg) 3.125 mg PO BID-[facility] Last Admin: 10/14/19 05:30 Dose: 3.125 mg Clopidogrel Bisulfate (Plavix) 75 mg PO DAILY [facility] Enoxaparin Sodium (Lovenox) 110 mg SC 0900,2100 [facility] Last Admin: 10/14/19 11:25 Dose: Not Given Furosemide (Lasix) 40 mg PO DAILY-AC [facility] Guaifenesin (Mucinex) 600 mg PO Q12HR [facility] Last Admin: 10/14/19 11:25 Dose: Not Given Ceftriaxone Sodium 1 gm/ (Sodium Chloride) 100 mls @ 200 mls/hr IVPB 1300 [facility] Last Admin: 10/13/19 14:22 Dose: 100 mls Azithromycin 500 mg/ Sodium (Chloride) 250 mls @ 250 mls/hr IVPB 1400 [facility] Last Admin: 10/13/19 14:48 Dose: 250 mls Sodium Chloride (Normal Saline 0.9%) 250 mls @ 50 mls/hr IV .Q5H [facility] Stop: 10/14/19 17:29 Lisinopril (Zestril) 2.5 mg PO DAILY [facility] Mometasone Furoate/Formoterol Fumar (Dulera 200 Mcg/5 Mcg Inhaler) 2 puff INH BID-RT [facility] Last Admin: 10/14/19 07:34 Dose: 2 puff Morphine Sulfate (Morphine) 2 mg SLOW IVP Q4H PRN PRN Reason: Moderate Chest Pain (4-6) Nitroglycerin (Nitrostat) 0.4 mg SL Q5MIN PRN PRN Reason: Chest Pain Ondansetron HCl (Zofran) 4 mg IVP Q6H PRN PRN Reason: Nausea/Vomiting Ondansetron HCl (Zofran) 4 mg SLOW IVP Q6H PRN PRN Reason: Nausea/Vomiting Vital Signs & Weight: Vital Signs Temp 10/14/19 11:14 98.2 F 10/14/19 07:17 98.2 F 10/14/19 04:00 97.1 F L Weight 239 lb 9.574 oz - CHADS-VASc Congestive heart failure: 1 Hypertension: 1 Vascular disease: 1 Risk Score: 3 - Quality Measures CV meds: Beta Zee: Yes, KARL/ARB: Yes, ASA: Yes, Plavix/Effient/Brilinta: Yes , Anticoagulant: Yes - Physical Exam General: alert & oriented x3, no apparent distress Neck: supple neck, no JVD/HJR Cardiac: irregularly regular. negative: tachycardia Lungs: clear to auscultation, normal exam Skin: negative: rash Musculoskeletal: no pain - Labs Result Diagrams: 10/14/19 03:22 10/14/19 03:22 Troponin/CKMB CK-MB (CK-2) 3.4 ng/mL (0-6.6) 10/10/19 21:15 Troponin I 5.968 ng/mL (< 0.028) H* 10/10/19 21:15 - Assessment/Plan Assessment/Plan: 1. Atrial flutter, typical. Converted to SR on amiodarone over weekend. In SR now. - CTI dependent. Will plan for possible ablation as OP. - full anticoagulation is indicated. On lovenox. CHADS2-VASC: 1 (heart failure, though likely higher with suspected vascular disease) - halfway, he will require Eliquis 5mg PO BID until 30 days post ablation, possibly longer if additional atrial arrhythmias are seen 2. Systolic heart failure - Echo revealed severely reduced EF of ~25%. Now 30% on LHC. - Likely tachycardia mediated. - S/P LCX stent.today. LVEF still 30%. 3. NS-VT. - Continue amiodaorneExpect LVEF to continue to improve. If o improvement consider ICd in 90 days. Plan is to hold off ablation and continue medical therapy with ransient amidarone for now. Plan senior care CTI ablation, after recovery from stenting. OAC with single or dual antiplatelet agent as per Dr Dickerson.
[2019-10-14] MEDS ORDERED: Lisinopril 2.5 MG TAB PO SCH (14:00)
[2019-10-14] MEDS: cefTRIAXone\\ROCEPHIN 1 GM in Sodium Chloride 0.9% 100 ML IVPB SCH (14:01)
[2019-10-14] MEDS: Azithromycin 500 MG in Sodium Chloride 0.9% 250 ML 250 ML IVPB SCH (14:11)
--- NOTE | 2019-10-14 18:05 | PDOC.HOSPP ---
- Subjective Encounter Date: 10/14/19 Encounter Time: 11:40 Subjective: Ptseen for followup re: NSTEMI. States he is breathing better, able to lie flat. - Objective Vital Signs & Weight: Vital Signs (12 hours) Temp Pulse 10/14/19 15:54 97.2 F L 10/14/19 13:59 86 10/14/19 11:14 98.2 F 10/14/19 07:17 98.2 F Weight Weight 239 lb 9.574 oz Most Recent Monitor Data Heart Rate from ECG 87 NIBP 150/112 NIBP BP-Mean 124 Respiration from ECG 22 SpO2 96 I&O: 10/13/19 10/14/19 10/15/19 06:59 06:59 06:59 Intake Total 787 1435 200 Output Total 950 2100 365 Balance -695 -665 -397 Result Diagrams: 10/14/19 03:22 10/14/19 03:22 Additional Labs: Labs and MARs reviewed by co Hospitalist ROS - Review of Systems Respiratory: denies: cough, shortness of breath, SOB with excertion, sputum, wheezing Cardiovascular: denies: chest pain, palpitations, orthopnea, paroxysmal noc. dyspnea, edema, light headedness - Medication Medications: Active Medications Generic Name Dose Route Start Last Admin Trade Name Freq PRN Reason Stop Dose Admin Acetaminophen 650 mg 10/11/19 14:23 10/13/19 20:29 Tylenol PO 650 mg Q4H PRN Administration Headache/Fever or Mild Pain Carvedilol 3.125 mg 10/13/19 17:00 10/14/19 17:20 Coreg PO 3.125 mg BID- CYN Administration Enoxaparin Sodium 110 mg 10/10/19 21:00 10/14/19 11:25 Lovenox SC Not Given 0900,2100 CYN Guaifenesin 600 mg 10/12/19 09:00 10/14/19 11:25 Mucinex PO Not Given Q12HR CYN Ceftriaxone Sodium 1 gm/ 100 mls @ 200 mls/hr 10/11/19 13:00 10/14/19 14:01 Sodium Chloride IVPB 100 mls 1300 CYN Administration Azithromycin 500 mg/ Sodium 250 mls @ 250 mls/hr 10/11/19 14:00 10/14/19 14: 11 Chloride IVPB 250 mls 1400 CYN Administration Mometasone Furoate/Formoterol Fumar 2 puff 10/12/19 18:30 10/14/19 07:34 Dulera 200 Mcg/5 Mcg Inhaler INH 2 puff BID-RT CYN Administration - Exam General - other findings: Obese Eye: anicteric sclera ENT: moist mucosa Neck: supple Heart: RRR Respiratory: CTAB, no wheezes Gastrointestinal: soft, non-tender Extremities: no cyanosis Skin: no lesions Musculoskeletal: no muscle wasting Psychiatric: normal affect, normal behavior Hosp A/P - Plan ASSESSMENT: NSTEMI (POA) CAP ?Pneumococcal (POA) Acute systolic HF exacerbation YURIY on CKD 2 - prob due to Cardiorenal syndrome/diuretics Tob dep CKD 2 RUL Lung nodule - 5mm (POA) Hyperglycemia - r/o DM2 Hyponatremia Obesity BMI 33.4 A flutter with RVR (POA, resolved) PLAN: Cath today. Pt converted to NSR. Continue furosemide 40 mg daily. Continue 1500 ml fluid restriction Continue therapeutic Lovenox Continue aspirin and statin. Cont ceftriaxone and azithromycin for Pneumonia
[2019-10-15 03:44] LABS: #Basophils 0.1 thou/uL (0.0-0.2); #Eosinphils 0.2 thou/uL (0.0-0.7); #Lymphocytes 1.7 thou/uL (1.20-3.40); #Monocytes 1.4 thou/uL (0.11-0.59); #Neutrophils 6.8 thou/uL (1.40-6.50); %Basophils 0.7 % (0.0-1.0); %Eosinophils 1.5 % (0.0-10.0); %Lymphocytes 17.1 % (21.0-51.0); %Monocytes 13.7 % (0.0-10.0); %Neutrophils 67.1 % (42.0-75.0); Hemoglobin 12.1 g/dL (14.0-18.0); Mean Corpuscular HGB CONC 32.2 g/dL (32.0-36.0); Mean Corpuscular Hemoglobin 30.1 pg (27.0-31.0); Mean Corpuscular Volume 93.6 fL (78.0-98.0); Mean Platelet Volume 9.5 fL (7.4-10.4); Platelet Count 240 thou/uL (130-400); RBC Distribution Width 13.8 % (11.5-14.5); Red Blood Cell (RBC) Count 4.01 mill/uL (4.70-6.10); White Blood Cell (WBC) Count 10.1 thou/uL (4.8-10.8)
[2019-10-15 04:03] LABS: ALT (SGPT) 475 U/L (8-55); AST (SGOT) 128 U/L (5-34); Albumin 3.7 g/dL (3.5-5.0); Alkaline Phosphatase 152 U/L (40-110); Anion Gap 12 mmol/L (10-20); BUN (Urea Nitrogen) 20 mg/dL (8.4-25.7); Bilirubin, Total 1.2 mg/dL (0.2-1.2); Calc. Creatinine Clearance 138 mL/min (70-130); Calcium 8.9 mg/dL (7.8-10.44); Carbon Dioxide 27 mmol/L (22-29); Chloride 105 mmol/L (98-107); Estimated GFR-MDRD 85; Globulin 2.9 g/dL (2.4-3.5); Glucose 126 mg/dL (70-105); Potassium 4.3 mmol/L (3.5-5.1); Protein, Total 6.6 g/dL (6.0-8.3); Sodium 140 mmol/L (136-145)
[2019-10-15] MEDS: Acetaminophen 325 MG TAB PO PRN (04:18)
[2019-10-15] MEDS ORDERED: Furosemide 40 MG TAB PO SCH (07:30)
[2019-10-15] MEDS: Mometasone/Formoterol 120 PUFF INHALER INH SCH (08:00)
[2019-10-15] MEDS: guaiFENesin ER 600 MG TAB PO SCH (08:45)
[2019-10-15] MEDS: Carvedilol 3.125 MG TAB PO SCH (08:45)
[2019-10-15] MEDS: Enoxaparin Sodium 120 MG/0.8 ML SYRINGE SC SCH ×2 (08:46→08:49)
[2019-10-15] MEDS ORDERED: Lisinopril 2.5 MG TAB PO SCH (09:00)
[2019-10-15] MEDS ORDERED: Aspirin Chewable 81 MG TAB PO SCH (09:00)
[2019-10-15] MEDS ORDERED: Clopidogrel Bisulfate 75 MG TAB PO SCH (09:00)
--- NOTE | 2019-10-15 09:27 | PRG ---
DATE OF SERVICE: 10/15/2019 SUBJECTIVE: This morning, he is awake, alert, responsive. He is doing much better, status post cardiac cath yesterday with a single stent. OBJECTIVE: VITAL SIGNS: Temperature 97, pulse 88, saturations 98% on room air, blood pressure 136/90. LUNGS: No coughing. No wheezing. No shortness of breath. No crackles. CARDIAC: Normal S1 and S2. No gallops. ABDOMEN: No masses. LABORATORY DATA: White count 10,000. Lytes are normal. AST is still elevated. ASSESSMENT: 1. Status post cardiac cath. 2. Atrial fibrillation/flutter. 3. Congestive heart failure. 4. Chronic obstructive pulmonary disease. 5. Bronchitis. PLAN: Discontinue antibiotics. Findings, consider CHF. Continue Dulera home any time. Job ID: [id number]
[2019-10-15] MEDS ORDERED: Apixaban 5 MG TAB PO SCH ×2 (09:30→21:00)
[2019-10-15 11:06] VITALS: TEMP 97.7
[2019-10-15] MEDS ORDERED: Amiodarone 200 MG TAB PO SCH (15:00)
--- NOTE | 2019-10-15 16:31 | PDOC.CPN ---
- Subjective Date: 10/15/19 Time: 16:28 Interval history: Doing well. Right wrist without issue.s - Review of Systems General: denies: fever/chills, weight/appetite/sleep changes, night sweats, fatigue Respiratory: denies: cough, congestion, shortness of breath, exercise intolerance Cardiovascular: denies: chest pain, palpitation, edema, paroxysmal nocturnal dyspnea, orthopnea Gastrointestinal: denies: nausea, vomiting, diarrhea, constipation, abd pain, GI bleeding Musculoskeletal: denies: pain, tenderness, stiffness, swelling, arthritis/ arthralgias Neurological: denies: numbness, syncope, seizure, weakness - Objective Allergies/Adverse Reactions: Allergies Allergy/AdvReac Type Severity Reaction Status Date / Time No Known Allergies Allergy Verified 10/11/19 00:32 Visit Medications: Current Medications Acetaminophen (Tylenol) 650 mg PO Q4H PRN PRN Reason: Headache/Fever or Mild Pain Last Admin: 10/15/19 04:18 Dose: 650 mg Amiodarone HCl (Cordarone) 200 mg PO TID [facility] Apixaban (Eliquis) 5 mg PO BID [facility] Carvedilol (Coreg) 3.125 mg PO BID-[facility] Last Admin: 10/15/19 08:45 Dose: 3.125 mg Clopidogrel Bisulfate (Plavix) 75 mg PO DAILY [facility] Last Admin: 10/15/19 08:45 Dose: 75 mg Furosemide (Lasix) 40 mg PO DAILY[facility] Last Admin: 10/15/19 08:45 Dose: 40 mg Guaifenesin (Mucinex) 600 mg PO Q12HR [facility] Last Admin: 10/15/19 08:45 Dose: 600 mg Lisinopril (Zestril) 2.5 mg PO DAILY [facility] Last Admin: 10/15/19 08:46 Dose: 2.5 mg Mometasone Furoate/Formoterol Fumar (Dulera 200 Mcg/5 Mcg Inhaler) 2 puff INH BID-[facility] Last Admin: 10/15/19 08:00 Dose: 2 puff Morphine Sulfate (Morphine) 2 mg SLOW IVP Q4H PRN PRN Reason: Moderate Chest Pain (4-6) Nitroglycerin (Nitrostat) 0.4 mg SL Q5MIN PRN PRN Reason: Chest Pain Ondansetron HCl (Zofran) 4 mg IVP Q6H PRN PRN Reason: Nausea/Vomiting Ondansetron HCl (Zofran) 4 mg SLOW IVP Q6H PRN PRN Reason: Nausea/Vomiting Vital Signs & Weight: Vital Signs Temp Pulse 10/15/19 11:05 97.7 F 10/15/19 08:46 88 10/15/19 07:08 97.4 F L Weight 238 lb - Quality Measures CV meds: Beta Zee: Yes, KARL/ARB: Yes, ASA: Yes, Plavix/Effient/Brilinta: Yes , Anticoagulant: Yes - Physical Exam General: alert & oriented x3 HEENT: mucus membranes moist Neck: supple neck Cardiac: regular rate and rhythm, no murmur Lungs: clear to auscultation Neuro: grossly intact Abdomen: active bowel sounds Extremities: no edema Skin: clear Musculoskeletal: no pain - Labs Result Diagrams: 10/15/19 03:32 10/15/19 03:31 Troponin/CKMB CK-MB (CK-2) 3.4 ng/mL (0-6.6) 10/10/19 21:15 Troponin I 5.968 ng/mL (< 0.028) H* 10/10/19 21:15 - Telemetry Sinus rhythms and dysrhythmias: sinus rhythm - Assessment/Plan Assessment/Plan: 1. Acute on chronic systolic heart failure 2. New onset dilated CM 3. Atrial flutter 4. Tobacco use 5. HTN 6. CAD 7. Ischemic cardiomyopathy EF 30% PLAN: - Continue amiodarone per EP. - S/P BMS to proximal LCx. Good results. Occluded RCA fills from left collaterals. - Continue current meds - We lo d along conversation about lifevest and he declines for now. - May discharge home. - Follow up in the office in 1 month.
--- NOTE | 2019-10-15 16:51 | PDOC.EP ---
- Subjective Date: 10/15/19 Time: 09:00 Interval History: follow up for typical atrial flutter. Feels "fantastic" today. Eager to go home. no complaints. - Review of Systems Constitutional: denies: chills, fever, malaise, sweats, weakness, other Respiratory: denies: cough, dry, hemoptysis, pleuritic pain, shortness of breath , SOB with excertion, sputum, wheezing, other Cardiology: denies: chest pain, edema, heart racing, light headedness, paroxysmal noc. dyspnea, orthopnea, palpitations, passing out, pleuritic pain, pressure, swelling, other Gastrointestinal: denies: abdominal pain, constipation, diarrhea, hematochezia, melena, nausea, vomitting, other Musculoskeletal: denies: unstable gait, falls, neck pain, shoulder pain, arm pain, hand pain, leg pain, foot pain, other - Objective Allergies/Adverse Reactions: Allergies Allergy/AdvReac Type Severity Reaction Status Date / Time No Known Allergies Allergy Verified 10/11/19 00:32 Current Medications Acetaminophen (Tylenol) 650 mg PO Q4H PRN PRN Reason: Headache/Fever or Mild Pain Last Admin: 10/15/19 04:18 Dose: 650 mg Amiodarone HCl (Cordarone) 200 mg PO TID [facility] Apixaban (Eliquis) 5 mg PO BID [facility] Carvedilol (Coreg) 3.125 mg PO BID-WM [facility] Last Admin: 10/15/19 08:45 Dose: 3.125 mg Clopidogrel Bisulfate (Plavix) 75 mg PO DAILY [facility] Last Admin: 10/15/19 08:45 Dose: 75 mg Furosemide (Lasix) 40 mg PO DAILY-AC [facility] Last Admin: 10/15/19 08:45 Dose: 40 mg Guaifenesin (Mucinex) 600 mg PO Q12HR [facility] Last Admin: 10/15/19 08:45 Dose: 600 mg Lisinopril (Zestril) 2.5 mg PO DAILY [facility] Last Admin: 10/15/19 08:46 Dose: 2.5 mg Mometasone Furoate/Formoterol Fumar (Dulera 200 Mcg/5 Mcg Inhaler) 2 puff INH BID-RT [facility] Last Admin: 10/15/19 08:00 Dose: 2 puff Morphine Sulfate (Morphine) 2 mg SLOW IVP Q4H PRN PRN Reason: Moderate Chest Pain (4-6) Nitroglycerin (Nitrostat) 0.4 mg SL Q5MIN PRN PRN Reason: Chest Pain Ondansetron HCl (Zofran) 4 mg IVP Q6H PRN PRN Reason: Nausea/Vomiting Ondansetron HCl (Zofran) 4 mg SLOW IVP Q6H PRN PRN Reason: Nausea/Vomiting Vital Signs & Weight: Vital Signs Temp Pulse 10/15/19 11:05 97.7 F 10/15/19 08:46 88 10/15/19 07:08 97.4 F L Weight 238 lb I/O: I/O 10/14/19 10/15/19 10/16/19 06:59 06:59 06:59 Intake Total 1435 680 Output Total 2100 765 Balance -665 -85 - Quality Measures Condition: Atrial Fibrillation/Flutter (hx or current) CV meds: Eliquis: Yes (started 10/15 AM) - Physical Exam General: alert & oriented x3, appears well, no apparent distress, speech clear, affect appropriate HEENT: mucus membranes moist, normocephaly Neck: supple neck, midline trachea, no JVD/HJR, no masses, no bruit, no lymphadenopathy, no thromegaly Cardiology: regular rate and rhythm, no murmur, regular rate, regular rhythm, PMI nondisplaced Lungs: clear to auscultation, normal breath sounds, normal exam, no wheeze, rales, rhonchi, no wheezes, no rales, no rhonchi Neurology: cranial nerve 2-12 intact, grossly intact, motor function intact, sensory function intact, negative rhomberg, coordination normal, no lateralizing findings Abdomen: unremarkable, active bowel sounds, soft, non-tender, no masses, no pulsations/bruits, no hepatosplenomegaly, HJR negative Extremities: dry, strong pulses, warm. negative: clubbing, cyanosis - Chadsvasc Risk factors Congestive heart failure: 1 Vascular disease: 1 Risk Score: 2 - Labs Result Diagrams: 10/15/19 03:32 10/15/19 03:31 - EKG Interpretation EKG Method: Telemetry EKG shows: Sinus rhythm - Assessment/Plan Assessment/Plan: 1. Atrial flutter - CTI dependent - plan for EPS ablation as OP. -Continue amiodarone for now. Taper to 200mg PO daily as discussed with hospitalist 2. Oral anticoagulation is indicated - Eliquis 5mg BID started. Continue upon DC 3. Cardiomyopathy - possibly tachycardia mediated. Continue amio to prevent tachy recurrence until ablation can be arranged. Medical mgmt by cardiology. If EF remains <35% after 3 months, consider echo. OK for DC by EP. In sinus rhythm. DC on Amiodarone taper and Eliquis 5mg BID. 6 week follow up will be arranged to discuss ablation.
--- NOTE | 2019-10-16 03:50 | DIS ---
DATE OF ADMISSION: 10/10/2019 DATE OF DISCHARGE: 10/15/2019 PRIMARY CARE PROVIDER: Nina Colorado. DISCHARGE DIAGNOSES: 1. [id number] myocardial infarction. 2. Community-acquired pneumonia. 3. Acute systolic congestive heart failure, [place] Heart Association class III. 4. Acute on chronic renal failure, stage 2. 5. Right upper lobe lung nodule. 6. Hyponatremia. 7. Atrial flutter. CONDITION OF PATIENT ON THE DAY OF DISCHARGE: Stable. I assessed Mr. Jc on the day of discharge. He denies any chest pain or shortness of breath. Vital signs are stable. S1 and S2 are heard, regular. Lungs are clear to auscultation bilaterally. CONSULTATIONS DURING THIS HOSPITALIZATION: 1. Cardiology, Moses Dickerson MD. 2. Pulmonary and Critical Care Medicine, Derrick Rivas MD. 3. Electrophysiology, Matthew Rico MD. POST-ACUTE CARE FOLLOWUP: With primary care provider on October 25, 2019, at 10:15 a.m.; with Cardiology, Dr. Dickerson, in 2 to 3 weeks; and with Electrophysiology, Dr. Rico, in 2 to 3 weeks. DISCHARGE MEDICATIONS: 1. Amiodarone 200 mg 3 times a day for one week, then 200 mg 2 times a day for two weeks, then 200 mg daily. 2. Apixaban 5 mg 2 times a day. 3. Aspirin 81 mg daily. 4. Coreg 3.125 mg 2 times a day. 5. Plavix 75 mg daily. 6. Lasix 40 mg daily. 7. Lisinopril 2.5 mg daily. 8. Dulera 200/5 mcg two puffs 2 times a day. HOSPITAL COURSE: Mr. Jc is a pleasant 54-year-old gentleman, who was admitted to [facility] on October 10, 2019, for atrial flutter, right lower lobe infiltrate and evidence of congestive heart failure. He was also found to have non ST-elevation myocardial infarction. He was seen by Cardiology, Electrophysiology, and Pulmonology Services. CT angiogram of the chest done at the time of admission showed indeterminate right upper lobe 5 mm lung nodule, no evidence of pulmonary embolism, bilateral pleural effusions and mediastinal lymphadenopathy. He has been advised to follow up with his primary care provider regarding this CT scan findings. He also received antibiotics for pneumonia. He received diuretics for congestive heart failure. He was treated with amiodarone. He converted to normal sinus rhythm. On October 14, he underwent cardiac catheterization. At the time of this dictation, the official report is pending. He underwent bare metal stent placement. He has been advised to take Plavix and aspirin for one month, followed by aspirin alone. He has been started on Eliquis. He is also on amiodarone taper for atrial flutter. He is being discharged home in a stable condition. 2D echocardiogram done on October 11, 2019, showed left ventricular ejection fraction of 20% to 25%, dilated left ventricle, dilated right ventricle with reduced right ventricular systolic function, moderately dilated left atrium, moderately enlarged right atrium size, mitral annular calcification, moderate mitral regurgitation, aortic valve sclerosis but opens well, mild aortic regurgitation, moderate to severe tricuspid regurgitation, and elevated right ventricular systolic pressure estimated at 48 mmHg. On the day of discharge, he has white count of 10,100; hemoglobin 12.1; platelet count 240,000. Sodium 140, potassium 4.3, creatinine 0.92, total bilirubin 1.2 , AST 128, ALT 475, and alkaline phosphatase 152. Fasting lipid profile during this hospitalization showed triglycerides 99, cholesterol 128, LDL cholesterol 91, and HDL cholesterol 17. Once his liver function improves, he can be considered for statin. Many thanks for allowing me to participate in your patient's care. Please feel free to contact me with any questions or concerns. DIET: Heart healthy. ACTIVITY: Ad jimenez. DISCHARGE DESTINATION: Home. TIME SPENT: Total amount of time spent coordinating this discharge: 32 minutes. ADDENDUM: Mr. Jc has cardiomyopathy. The need for LifeVest was discussed with him. The patient is not interested in LifeVest at this time. He wants to think about it and will discuss with director alliance marketing at his followup appointment. Job ID: [id number] [facility]
== END 2019-10-15 16:45 | disposition home or self-care (01) | DRG 248 ==
LOC: ERS 11:29 → IMCU/EMU 15:26
PROVIDERS: ADMIT Internal Medicine; ATTEND Internal Medicine
PROC: 4A023N7 Measurement of Cardiac Sampling and Pressure, Left Heart, Percutaneous Approach (ICD-10-PCS; principal; 2019-10-14)
PROC: B2111ZZ Fluoroscopy of Multiple Coronary Arteries using Low Osmolar Contrast (ICD-10-PCS; 2019-10-14)
PROC: 02703EZ Dilation of Coronary Artery, One Artery with Two Intraluminal Devices, Percutaneous Approach (ICD-10-PCS; 2019-10-14)
DX: I13.0 Hypertensive heart and chronic kidney disease with heart failure and stage 1 through stage 4 chronic kidney disease, or unspecified chronic kidney disease (principal); I21.4 Non-ST elevation (NSTEMI) myocardial infarction; I50.23 Acute on chronic systolic (congestive) heart failure; J18.9 Pneumonia, unspecified organism; E87.1 Hypo-osmolality and hyponatremia; I48.92 Unspecified atrial flutter; N17.9 Acute kidney failure, unspecified; I47.1 Supraventricular tachycardia; I42.8 Other cardiomyopathies; E11.65 Type 2 diabetes mellitus with hyperglycemia; E66.9 Obesity, unspecified; I25.10 Atherosclerotic heart disease of native coronary artery without angina pectoris; J44.9 Chronic obstructive pulmonary disease, unspecified; I25.5 Ischemic cardiomyopathy; J40 Bronchitis, not specified as acute or chronic; F17.210 Nicotine dependence, cigarettes, uncomplicated; N18.2 Chronic kidney disease, stage 2 (mild); Z68.33 Body mass index [BMI] 33.0-33.9, adult; Z79.01 Long term (current) use of anticoagulants
CPT/HCPCS: 36415; 36416; 71045; 71275; 80048; 80053; 80061; 80076; 82553; 83036; 83605; 83690; 83735; 83880; 84443; 84484; 85025; 85347; 85379; 85610; 85730; 87040; 90471; 90686; 90732; 92928; 93005; 93010; 93306; 93458; 93798; 94760; 96361; 96365; 96366; 96367; 96368; 96372; 96375; 96376; 99152; 99153; 99292; C1769; C1876; G0008; G0009; J0282; J0456; J0696; J1644; J1650; J1940; J2250; J3010; J3490; J7050; J7070; Q9967